=== PATIENT | male | born 1970 | race Two or more races ===

== ENCOUNTER 2023-12-04 09:50 | Emergency (ER) | payer BC ==
[~2023-12-04] VITALS: Ht 180.3 cm; Wt 102.1 kg
[2023-12-04 10:40] LABS: BASOPHILS % (AUTO) 0.2 % (0.0-2.0); EOSINOPHILS % (AUTO) 0.1 % (0.0-6.0); HEMATOCRIT 45 % (39-51); HEMOGLOBIN 15.5 g/dL (13.5-17.5); MEAN CORPUSCULAR HEMOGLOBIN 30 PG (26.0-33.0); MEAN CORPUSCULAR HGB CONC 34 g/dl (31.0-36.0); MEAN CORPUSCULAR VOLUME 87 fL (80-96); MONOCYTES # (AUTO) 0.3 K/uL (0.1-1.30); MONOCYTES % (AUTO) 4.1 % (2.0-12.0); NEUTROPHILS # (AUTO) 6.3 K/uL (1.8-8.9); NEUTROPHILS % (AUTO) 82.6 % (43.0-81.0); PLATELET COUNT (AUTO) 193 K/uL (150-450); RED CELL DISTRIBUTION WIDTH 12.7 % (11.5-15.0); WHITE BLOOD COUNT (AUTO) 7.6 K/uL (4.3-11.0)
[2023-12-04] MEDS ORDERED: KETOROLAC TROMETHAMINE 15 MG/ML VIAL ONE (10:41)
[2023-12-04] MEDS ORDERED: FAMOTIDINE (20 MG) 20 MG TABLET ONE (10:41)
[2023-12-04] MEDS ORDERED: PANTOPRAZOLE 40 MG VIAL ONE (10:41)
[2023-12-04] MEDS: KETOROLAC TROMETHAMINE 15 MG/ML VIAL IV ONE (10:44)
[2023-12-04] MEDS: FAMOTIDINE/PF INJ 20 MG/2 ML VIAL IV ONE (10:44)
[2023-12-04] MEDS: IV NS 0.9% 1,000 ML BAG IV ONE (10:44)
[2023-12-04] MEDS: PANTOPRAZOLE 40 MG VIAL IV ONE (10:44)
[2023-12-04 10:48] LABS: CALCIUM, SERUM 9.1 mg/dL (8.5-10.1); CREATININE 0.9 mg/dL (0.6-1.3); POTASSIUM 4.4 mmol/L (3.5-5.1)
[2023-12-04 10:54] LABS: ALBUMIN 4.2 g/dL (3.4-5.0); BILIRUBIN,TOTAL 1.4 mg/dL (0.2-1.0); TOTAL PROTEIN, SERUM 7.1 g/dL (6.4-8.2)
[2023-12-04 11:44] LABS: APPEARANCE,URINE Clear (CLEAR); BILIRUBIN,URINE Negative (NEGATIVE); BLOOD, URINE Negative Ery/uL (NEGATIVE); COLOR,URINE YELLOW (YELLOW); KETONES,URINE 40 mg/dL (NEGATIVE); LEUKOCYTE ESTERASE ,URINE Negative (NEGATIVE); NITRITE, URINE Negative (NEGATIVE); PROTEIN,URINE Negative (NEGATIVE); UGLUCOSE Negative (NEGATIVE); UROBILINOGEN,URINE 0.2 EU/dL (0.2)
[2023-12-04 11:58] LABS: ADD URINE CULTURE NO; BACTERIA,URINE Few /HPF (None Seen); MUCUS,URINE Few /LPF (None Seen); RBC,URINE 0-2 /HPF (0-2); SQUAMOUS EPITHELIAL CELL,UR Few /HPF (None Seen); URINE AMORPHOUS URATE Few /HPF (None Seen); WBC,URINE 0-2 /HPF (0-3)
[2023-12-04] MEDS ORDERED: KETO10TA2 PO (13:54)
[2023-12-04] MEDS ORDERED: PANT40TA49 PO (13:54)
[2023-12-04] MEDS ORDERED: FAMO20TA80 PO (13:54)
[2023-12-04 14:06] LABS: BILIRUBIN,DIRECT 0.2 mg/dL (0.0-0.2); BILIRUBIN,TOTAL 1.3 mg/dL (0.2-1.0)
[2023-12-04 14:11] VITALS: BP 150/80; TEMP 98.2; O2SAT 99
== END 2023-12-04 14:14 | disposition home or self-care (01) ==
LOC: ER 09:58
DX: K80.50 Calculus of bile duct without cholangitis or cholecystitis without obstruction (principal)
CPT/HCPCS: 99285; 96374; 96375; 71045; 76705; 82247 ×2; 82248; 85025; 83690; 81001; 36415; 80053; J7030; J2470; J1885